=== PATIENT | female | born 1960 | race Caucasian/White ===

== ENCOUNTER → 2020-06-16 15:51 | Outpatient (CLI) | payer OTHER, SELFPAY ==
--- NOTE | ~2020-06-16 | MM_ITS ---
EXAMINATION: MM screening [facility] BI [facility] HISTORY: Screening mammogram TECHNIQUE: Craniocaudal and mediolateral oblique 3-D tomosynthesis images were obtained and synthetic 2-D images were generated. CAD analysis was submitted and interpreted. COMPARISON: 03/02/2019, 01/23/2018, 11/29/2016 bilateral digital screening mammogram examinations BREAST PARENCHYMAL COMPOSITION: The breasts are almost entirely fatty. FINDINGS: There is no evidence of suspicious mass, calcification, or architectural distortion to sugg est malignancy in either breast. There has been no suspicious interval change. IMPRESSION: 1. No mammographic evidence of malignancy. 2. Recommend routine screening mammography in one year. BI-RADS Category 1: Negative Reviewed, dictated and finalized at location A. [employer]
== END ==
PROVIDERS: Visit Provider Physician Assistant
DX: Z12.31 Encounter for screening mammogram for malignant neoplasm of breast (principal)
CPT/HCPCS: 77063; 77067

== ENCOUNTER → 2020-10-09 08:51 | Outpatient (CLI) | payer OTHER, SELFPAY ==
--- NOTE | ~2020-10-09 | MR_ITS ---
EXAMINATION: MR brain IAC wo/w con DATE: 10/09/2020 10:06 INDICATION: Dizziness and giddiness. Diplopia. TECHNIQUE: Magnetic resonance imaging (MRI) of the brain, brainstem, and internal auditory canals was performed without and with 19 mL MultiHance intravenous contrast. Sequences included sagittal and ax ial T1-weighted FSE, axial diffusion-weighted FS EPI, axial T2*-weighted GRE, axial T2-weighted FLAIR Propeller, axial T2-weighted Propeller, small bdzqb-fy-efyx coronal FIESTA, small qtcvc-yd-xbqy ksenia nal T1-weighted FSE, and small vlamh-nv-tpdf axial T1-weighted SPGR. Postcontrast sequences included axial T1-weighted FSE, small ojhls-wg-zgum coronal T1-weighted FSE, and small kykgq-lo-akht axial T1- weighted SPGR. Apparent diffusion coefficient (ADC) maps were created. COMPARISON: None. FINDINGS: There are scattered areas of nonspecific increased T2-weighted signal intensity in the cere bral white matter, which is within normal limits for the patient's age. There is no intracranial hemo rrhage, acute infarction, or abnormal intracranial mass lesion. The ventricles are normal in size. Th e orbits are normal. There is mild mucosal thickening in the sphenoid sinuses. The internal auditory canals and inner and middle ears are normal. The mastoid air cells are normal. IMPRESSION: 1. Normal aging brain. Reviewed, dictated and finalized at location A. IMPRESSION: 1. Normal aging brain.
[2020-10-09 09:23] LABS: Estimated Glomerular Filt Rate > 60
== END ==
PROVIDERS: PCP Family Medicine; Visit Provider Physician Assistant
DX: H53.2 Diplopia (principal); R42 Dizziness and giddiness
CPT/HCPCS: 70553; A9577

== ENCOUNTER 2021-07-15 20:04 | Emergency (ER) | payer OTHER, SELFPAY ==
--- NOTE | ~2021-07-15 | CT_ITS ---
EXAMINATION: CT abdomen pelvis w con DATE: 07/15/2021 22:51 INDICATION: Generalized abdominal pain TECHNIQUE: Computed tomography (CT) of the abdomen and pelvis was performed with 100 mL Omnipaque-350 intravenous contrast. Automated exposure control and iterative reconstruction technique were employe d. The dose-length product was 1399.17 mGy-cm. COMPARISON: None FINDINGS: Lung bases are clear. Heart size is normal. Atherosclerotic coronary artery calcific location. No per icardial or pleural effusion. Cholecystectomy clips at the gallbladder fossa. Liver, spleen, pancreas , bilateral adrenal glands and kidneys are normal. Postoperative changes at the proximal stomach like ly bariatric surgery. The proximal portion of the stomach which is mildly dilated and fluid-filled wi th the more distal stomach relatively decompressed with small amount of gas and fluid. Normal appendi x. No abnormal bowel wall thickening or obstruction. Bladder is normal. The uterus is not identified and has likely been surgically resected. No free intraperitoneal gas or fluid. No pathologically enla rged abdominal or pelvic lymphadenopathy. Moderate to severe thoracolumbar spondylosis. IMPRESSION: 1. No acute intra-abdominal/pelvic process. 2. Likely bariatric surgery at the stomach with fluid distention of the smaller proximal portion of t he stomach. Reviewed, dictated and finalized at location A. IMPRESSION: 1. No acute intra-abdominal/pelvic process. 2. Likely bariatric surgery at the stomach with fluid distention of the smaller proximal portion of the stomach.
[2021-07-15 20:06] VITALS: BP 158/100; PULSE 118; RESP 18; TEMP 36.1; O2SAT 98
[2021-07-15] MEDS: SODIUM CHLORIDE 0.9% IV 1,000 ML 999 ML IV CONT ×2 (20:39→22:39)
[2021-07-15] MEDS: PANTOPRAZOLE SODIUM IV 40 MG VIAL IV PUSH (20:40)
[2021-07-15] MEDS: ONDANSETRON INJ 4 MG/2 ML VIAL IV PUSH (20:40)
[2021-07-15] MEDS: MORPHINE SULFATE (*CRX) 4 MG/ML INJ IV PUSH (20:40)
[2021-07-15 20:56] LABS: Basophils Absolute Auto 0.1 K/mm3 (0.0-0.1); Basophils Percent Auto 0.7 % (0.2-1.2); Eosinophils Absolute Auto 0.1 K/mm3 (0-0.3); Hematocrit 44.6 % (37.0-47.0); Hemoglobin 14.8 g/dL (12.0-15.0); Immature Granulocyte Absolute 0.02 K/mm3 (0.00-0.031); Immature Granulocyte Percent A 0.2 % (0-0.5); Mean Corpuscular HGB Conc 33.2 g/dl (32-36); Mean Corpuscular Hemoglobin 27.7 pg (26-34); Mean Corpuscular Volume 83.4 fl (80-100); Mean Platelet Volume 9.5 fl (7.4-10.4); Monocytes Absolute Auto 0.4 K/mm3 (0.1-0.6); Monocytes Percent Auto 5.4 % (2.6-8.5); Neutrophils Absolute Auto 5.8 K/mm3 (1.3-6.7); Neutrophils Percent Auto 70.7 % (45.5-73.1); Platelet Count Result 341 k/mm3 (150-375); Red Blood Count 5.35 M/mm3 (4.2-5.4); Red Cell Distribution Width 12.7 % (11.5-14.5); White Blood Count 8.2 K/mm3 (4.5-10.0)
--- NOTE | 2021-07-15 21:03 | ED.GENADULT ---
HPI - General Adult General Chief complaint: Nausea/Vomiting/Diarrhea Stated complaint: Vomiting, knot in my breast bone. Time Seen by Provider: 07/15/21 20:20 History of Present Illness HPI narrative: Patient 60-year-old female who presents the emergency department with chief complaint of nausea vomiting diarrhea. The patient reports for the last week she has been having epigastric discomfort has had multiple bouts of vomiting and has had loose stool. The patient states that the stool has been black-colored patient reports she is not on any blood thinners but does report that she has prior history of gastric stapling procedure many years ago. Patient reports been unable to keep fluids down has been unable to eat. Patient states that the discomfort is mostly in the epigastric region reports not improved by anything or is worsened by anything. The patient reports is also has history of hyperglycemia and is currently on Metformin. Related Data Home Medications Medication Instructions Recorded Confirmed aspirin 81 mg chewable tablet 81 mg PO DAILY 11/16/19 05/10/21 Allergies Allergy/AdvReac Type Severity Reaction Status Date / Time codeine Allergy Unknown Skin Verified 05/10/21 16:32 Reaction Review of Systems Review of Systems: A 10 system review of systems was completed on the patient and is negative except for what is stated in the HPI. Nursing and ancillary documentation was reviewed. [facility], [facility] Past Medical History Medical History (Updated 07/16/21 @ 01:38 by Henok Manzano MD) Hepatitis C antibody test negative (~06/23/17) History of mammogram (~11/26/12) History of Papanicolaou smear of cervix (~10/19/08) Surgical History Surgical History History of colonoscopy (~11/22/16) History of hysterectomy (~2003) Family History Family History Other Family history of gastrointestinal disorder Social History Social History Second hand tobacco smoke exposure: No Alcohol intake: never Exam Narrative: GENERAL: Well-appearing, well-nourished, and in no acute distress. HEAD: Normocephalic, atraumatic. EYES: PERRLA and EOMI. ENT: Nares clear, no rhinorrhea or epistaxis. Mucous membranes moist. NECK: Supple. CHEST: Clear to auscultation. No respiratory distress. HEART: Regular rate and rhythm. No murmur heard. Normal peripheral pulses. ABDOMEN: Soft, mild tenderness to palpation in the epigastric region, nondistended, normal active bowel sounds. EXTREMITIES: Normal range of motion. No edema. SKIN: Warm, dry, no rash. NEURO: No focal deficits. Alert and oriented x3. PSYCH: Normal mood and affect. Course Course Emergency Course: Pleuritic CT scan of the abdomen pelvis shows no acute findings. Patient is feeling much better at this time able to tolerate p.o. intake. Vital Signs Vital signs: Vital Signs Temperature 36.1 C L 07/15/21 20:06 Pulse Rate 118 H 07/15/21 20:06 Respiratory Rate 18 07/15/21 20:06 Blood Pressure 158/100 H 07/15/21 20:06 Pulse Oximetry 98 07/15/21 20:06 Temperature 36.1 C L 07/15/21 20:06 Pulse Rate 86 07/15/21 23:52 Respiratory Rate 18 07/15/21 23:52 Blood Pressure 172/93 H 07/15/21 23:52 Pulse Oximetry 99 07/15/21 23:52 Medical Decision Making MDM Narrative Medical decision making narrative: Patient shows no evidence of bowel obstruction or acute intra-abdominal pathology. Patient's laboratory studies showed evidence of a UTI but showed no evidence of significant dehydration. Patient's white blood cell count was within normal limits. Patient has a normal lactic acid. There is no anion gap and she has no evidence of pancreatitis. Vital Signs Vital Signs: Vital Signs Temperature 36.1 C L 07/15/21 20:06 Pulse Rate 118 H 07/15/21 20:06
[2021-07-15 21:04] LABS: Add Urine Microscopic? YES; Alanine Aminotransferase 18 U/L (4-35); Albumin Level 5.1 g/dL (3.5-5.1); Alkaline Phosphatase 102 U/L (38-126); Anion Gap 11 mmol/L (8-16); Appearance Urine Cloudy (Clear); Aspartate Amino Transferase 26 U/L (14-36); Bilirubin Urine Negative (Negative); Bilirubin,Total 0.7 mg/dL (0.2-1.3); Blood Urea Nitrogen 16 mg/dL (7-17); Carbon Dioxide 29 mmol/L (22-30); Chloride 102 mmol/L (98-107); Color Urine Amber (Yellow); Estimated CRCL calculation 89 ml/min; Estimated Glomerular Filt Rate > 60; Glucose 178 mg/dL (65-110); Glucose Urine UA 1+ mg/dL (Negative); Hyaline Casts Urine 15-19 /lpf; Ketones Urine 2+ mg/dL (Negative); Leukocyte Esterase Ur 1+ LEU/UL (Negative); Lipase 54 U/L (23-300); Mucus Urine Heavy /lpf; Nitrate Urine Negative (Negative); Potassium 3.7 mmol/L (3.4-5.0); Protein Urine 3+ mg/dL (Negative); Sodium 142 mmol/L (137-145); Specific Grav Ur 1.025 (1.001-1.035); Squamous Epithelial Cell Urine Many /hpf (Few)
[2021-07-15 21:16] LABS: Blood Urine Negative (Negative)
[2021-07-15 21:37] LABS: Lactic Acid Reflex 0.8 mmol/L (0.7-2.1)
[2021-07-15 22:10] VITALS: BP 136/88; PULSE 100; RESP 17; O2SAT 98
--- NOTE | 2021-07-15 23:10 | PC.NURSE ---
Assuming care of pt.
[2021-07-15 23:52] VITALS: BP 172/93; PULSE 86; RESP 18; O2SAT 99
[2021-07-16] MEDS: PROCHLORPERAZINE EDISYLATE 10 MG/2 ML VIAL IV PUSH (00:06)
[2021-07-16] MEDS: SODIUM CHLORIDE 0.9% IV 1,000 ML 999 ML IV CONT (00:06)
[2021-07-16] MEDS: DICYCLOMINE HCL INJ 20 MG/2 ML VIAL IM (00:08)
[2021-07-16] MEDS: CEPHALEXIN 500 MG CAPSULE PO (01:38)
[2021-07-16 01:39] VITALS: BP 162/99; PULSE 98; RESP 18; O2SAT 96
== END 2021-07-16 01:45 | disposition home or self-care (01) ==
PROVIDERS: Emergency Provider Emergency Medicine; PCP Family Medicine
DX: K52.9 Noninfective gastroenteritis and colitis, unspecified (principal); N30.00 Acute cystitis without hematuria; Z79.82 Long term (current) use of aspirin; Z79.84 Long term (current) use of oral hypoglycemic drugs; Z79.899 Other long term (current) drug therapy; Z98.84 Bariatric surgery status
CPT/HCPCS: 36415; 74177; 80053; 81001; 83605; 83690; 85025; 87077; 87086; 87088; 96361; 96372; 96374; 96375; 99284; A9270; C9113; J0500; J0780; J2270; J2405; J7030; Q9967

== ENCOUNTER → 2021-08-22 07:32 | Outpatient (CLI) | payer OTHER, SELFPAY ==
--- NOTE | ~2021-08-22 | MM_ITS ---
EXAMINATION: MM diagnostic elizabeth BI [facility] HISTORY: Palpable right breast mass TECHNIQUE: ML, MLO and CC 3-D tomosynthesis images of both breasts were performed and synthetic 2-D i mages were generated. CAD analysis was submitted and interpreted. COMPARISON: June 16, 2020, March 02, 2019, January 23, 2018lateral screening mammogram examinat ions BREAST PARENCHYMAL COMPOSITION: The breasts are almost entirely fatty. FINDINGS: Corresponding to the skin marker at the area of clinical complaint of a palpable lump in th e upper mid right breast is an approximately 8 mm benign circumscribed oil cysts with minimal wall ca lcification. Occasional benign calcified microhematomas. No suspicious mass or architectural distortion, malignant calcification, skin thickening or retractio n or significant new or developing density is detected. IMPRESSION: 1. Benign right breast will cyst corresponding to area of clinical complaint No mammographic evidence of malignancy 2. Routine mammographic screening is recommended BI-RADS Category 2: Benign finding(s). Reviewed, dictated and finalized at location A.
== END ==
PROVIDERS: PCP Family Medicine; Visit Provider Family Medicine
DX: N60.01 Solitary cyst of right breast (principal)
CPT/HCPCS: 77062; 77066; G0279

== ENCOUNTER → 2022-11-06 15:17 | Outpatient (CLI) | payer OTHER, SELFPAY ==
--- NOTE | ~2022-11-06 | MM_ITS ---
EXAMINATION: MM screening [facility] BI [facility]s HISTORY: Screening TECHNIQUE: Craniocaudal and mediolateral oblique 3-D tomosynthesis images were obtained and synthetic 2-D images were generated. CAD analysis was submitted and interpreted. COMPARISON: Comparison to multiple prior studies sequentially, with oldest reviewed study dated 09/2015. BREAST PARENCHYMAL COMPOSITION: There are scattered areas of fibroglandular density. FINDINGS: There is no evidence of suspicious mass, calcification, or architectural distortion to sugg est malignancy in either breast. There has been no suspicious interval change. IMPRESSION: 1. No mammographic evidence of malignancy. 2. Recommend routine screening mammography in one year. BI-RADS Category 1: Negative Reviewed, dictated and finalized at location A.
== END ==
PROVIDERS: PCP Family Medicine; Visit Provider Family Medicine
DX: Z12.31 Encounter for screening mammogram for malignant neoplasm of breast (principal)
CPT/HCPCS: 77063; 77067

== ENCOUNTER → 2022-11-28 12:09 | Outpatient (CLI) | payer OTHER, SELFPAY ==
--- NOTE | ~2022-11-28 | DEXA_ITS ---
Bone Density Report Name: ROXANA FRYE Age: 62 Sex: Female Ethnicity: White Date of : 1960 Indication: postmenopausal; screening for osteoporosis; height loss; hysterectomy; Referring Provider: Bianca Mendieta Study: Bone densitometry was performed. Exam Date: November 28, 2022 Accession number: [id number] Bone Density: Region BMD T-score Z-score Classification AP Spine (L1, L2, L3) 1.153 1.2 2.7 Normal Femoral Neck (Left) 0.998 1.3 2.7 Normal Total Hip (Left) 1.089 1.2 2.2 Normal Femoral Neck (Right) 0.997 1.3 2.7 Normal Total Hip (Right) 1.096 1.3 2.3 Normal Total Hip Mean 1.093 1.3 2.3 Normal World Health Organization criteria for BMD impression classify patients as: Normal (T-score at or above -1.0), Osteopenia (T-score between -1.0 and -2.5), or Osteoporosis (T-score at or below -2.5). 10-year Fracture Risk: FRAX not reported because: All T-scores for Spine Total, Hip Total, Femoral Neck at or above -1.0 Previous Exams: Region Exam Age BMD T-score BMD Change BMD Change Date g/cm2 vs Baseline vs Previous AP Spine(L1, L2, L3) 11/28/2022 62 1.153 1.2 -0.121* -0.121* 11/14/2014 54 1.274 2.3 Total Hip(Left) 11/28/2022 62 1.089 1.2 -0.222* -0.222* 11/14/2014 54 1.311 3.0 Total Hip(Right) 11/28/2022 62 1.096 1.3 -0.199* -0.199* 11/14/2014 54 1.295 2.9 *Denotes significance at 95% confidence level, LSC for AP Spine = 0.022 g/cm2, LSC for Total Hip = 0.027 g/cm2 Clinical Information Provided by Patient: Has used the following medications: Vitamin D, MULTI-VITAMIN Has the following medical conditions: Hysterectomy Patient maximum height was 67.5 Menopause Age: 44 Drinks caffeinated beverages Onset of menses at age 11 Number of children 1 Impression: The patient has normal bone mass. The BMD for the AP Spine(L1, L2, L3) decreased, changing by -0.121 since the last DXA exam. The BMD for the Total Hip(Left) decreased, changing by -0.222 since the last DXA exam. The BMD for the Total Hip(Right) decreased, changing by -0.199 since the last DXA exam. Discussion: LOW RISK OF FRACTURE; BONE DENSITY IS WELL ABOVE THE MINIMUM DESIRABLE LEVEL AND ABOVE AVERAGE FOR AGE AND SEX AT ALL SKELETAL SITES TESTED. This person's bone density is above expected limits for age and sex. This is rarely clinically significant, but should be pursued if there are significant musculoskeletal com
== END ==
PROVIDERS: PCP Orthopaedic Surgery; Visit Provider Nurse Practitioner
DX: Z78.0 Asymptomatic menopausal state (principal)
CPT/HCPCS: 77080

== ENCOUNTER 2023-07-17 05:52 | Day surgery (SDC) | payer OTHER, SELFPAY ==
[2023-07-01 11:51] VITALS: BMI 32.1
[2023-07-17] VITALS (7 sets, daily range): BP systolic 122–141; BP diastolic 60–93; PULSE 71–84; RESP 12–23; TEMP 35.8–36.4; O2SAT 93–100
--- NOTE | 2023-07-17 07:05 | PM.HPGS ---
History of Present Illness History of Present Illness Chief complaint: Localized Adiposity Narrative: Patient seen and examined in pre-operative holding area. No interval change in medical history or symptoms. Patient remembers previous discussion of benefits and alternatives to procedure. Continues to desire to proceed with excision of back mass . I reviewed the risks including but not limited to bleeding ,infection, asymmetry, undesireable cosmetic appearance, seroma, recurrence, no change or worsening of symptoms, change in sensation. I discussed the possible use of assistants and their level of participation in the case. Patient stated understanding and signed the consent form wishing to proceed Review of Systems Review of Systems: All systems reviewed & are unremarkable except as noted in HPI and below PMFSH Past Medical History Medical History (Updated 07/17/23 @ 07:16 by Glen Markham MD) Anxiety Essential (primary) hypertension Hepatitis C antibody test negative (~06/23/17) History of mammogram (~11/26/12) History of Papanicolaou smear of cervix (~10/19/08) Type 2 diabetes mellitus without complications Surgical History Surgical History History of colonoscopy (~11/22/16) History of hysterectomy (~2003) Family History Family History Other Family history of gastrointestinal disorder Social History Social History (Updated 05/14/23 @ 16:10 by Marie Franks MA) Smoking status: Never smoker Second hand tobacco smoke exposure: No Alcohol intake: never Substance use: never Substance use type: does not use Do You Feel Safe in your Home?: Yes Lack of Transportation: No Lack of Food: Never True Current Housing: I Have Housing Concerned About Future Housing: No Difficulty Paying Gas/Electric Bills: No Difficulty Paying for Meds: No Currently Unemployed: No Education: Master's Degree or Higher Difficulty w/ Childcare or Family Care: No Living arrangements: alone Spiritual care concerns: No Meds Home Medications and Allergies Home Medications Medication Instructions Recorded Confirmed Type amlodipine 5 mg-valsartan 320 mg 1 tablet PO DAILY #90 tabs 01/24/23 07/17/23 Rx tablet clobetasol 0.05 % scalp solution 1 applic topical BID #150 mL 03/06/23 07/17/23 Rx dulaglutide 4.5 mg/0.5 mL 4.5 mg (0.5 mL) subcut WEEKLY #6 mL 03/06/23 07/17/23 Rx subcutaneous pen injector metformin 1,000 mg tablet 1,000 mg PO BID #180 tabs 03/10/23 07/17/23 Rx celecoxib 200 mg capsule See Rx Instructions .Route 03/31/23 07/17/23 Rx .COMPLEX #90 caps metoprolol succinate 50 mg 75 mg PO DAILY #135 tabs 04/08/23 07/17/23 Rx tablet,extended release 24 hr betamethasone dipropionate 0.05 % 1 applic topical BID #45 grams 05/13/23 07/17/23 Rx topical cream calcipotriene 0.005 % topical cream 1 applic topical BID #60 grams 05/13/23 07/17/23 Rx pravastatin 10 mg tablet See Rx Instructions .Route 06/03/23 07/17/23 Rx .COMPLEX #90 tabs levothyroxine 88 mcg tablet See Rx Instructions .Route 06/30/23 07/17/23 Rx .COMPLEX #90 tabs venlafaxine 150 mg See Rx Instructions .Route 06/30/23 07/17/23 Rx capsule,extended release 24 hr .COMPLEX #90 caps tramadol 50 mg tablet 50 mg PO Q6H PRN pain #8 tabs 07/17/23 Rx Allergies Allergy/AdvReac Type Severity Reaction Status Date / Time codeine Allergy Unknown Skin Verified 07/17/23 06:19 Reaction Vital Signs Vital Signs - 24 hr 07/17/23 06:27 Temperature 35.8 C L Pulse Rate 71 Respiratory Rate 18 Blood Pressure 136/93 H Pulse Oximetry 98 Oxygen Delivery Room Air Exam Narrative: unchanged Assessment and Plan Assessment and plan (1) Localized swelling, mass and lump, trunk: Code(s): R22.2 - Localized swelling, mass and lump, trunk Status: Acute Assessment and Plan:
--- NOTE | 2023-07-17 07:06 | P.OP_ITS ---
Procedure Note - Detailed Date of Procedure 07/17/23 Pre-op Diagnosis back mass Post-op Diagnosis Same Procedure Performed excisin back mass Surgeon Elba Mayen MD Forestry Worker Kaila Ponce PA-C Anesthesia MAC Description of Procedure INFORMED CONSENT: The patient was seen and examined and marked in the pre-op area.? The patient signed the consent form. PROCEDURE IN DETAIL:The patient taken back to OR on the stretcher in lateral decubitus position. Time out performed with anesthesia, surgeon and staff agreeing on patient's name site and surgery to be performed SCDs were placed on the lower extremities and inflated. After anesthesia administered sedation I injected {30}cc 1%lido with epi and 0.5% marcaine plain at the operative site The?area?was prepped and draped in sterile fashion I proceeded with making a vertical incision over mass through skin and dermis with a 15 blade scalpel. bovie cautery was used to dissect through subq tissue noting mass was sub fascial. inciison made in fascia with 15 blade scalpel then I proceeded with circumferential dissection around the lipomatous mass. I irrigated with normal saline and achieved hemostasis with bovie cautery. There was a notable excess of skin after mass resection. I proceeded with elliptical excision of excess skin around my incision including extra skin superiorly and inferiorly for dog ears with 15 blade and bovie. I mobilized some of the subcutaneous fat and brought it into the empty space to help improve contour and secured it with 2-0 vicryl suture after I closed fascia with 2-0 vicryl suture. 3-0 vicryl was used for dermis where I also made 3-point suture to tack skin down to the fascia and 3-0 nylon for skin. The diameter of the mass was [id number]. The length of closure was 12cm A dressing of mastisol, steri-strip, 4x4, and pressure dressing was applied.. The patient was then awaken from anesthesia and transferred to the recovery room in stable condition.? Complications - none EBL- 10cc Disposition - home in stable conditions Kaila Ponce PA-C was essential for positioning, retraction, closure and dressing placement AM Billing Surgery - Charge Forward: Surgery Billing ([id number] and [id number], for kaila)
--- NOTE | 2023-07-17 07:16 | WPDANESEPPF ---
Anes - Initial Pre Proc Eval Procedure: Operation Date: 07/17/23 07:30 Proposed Procedures p Excision Back Mass - Elba Mayen MD Date/Time: 07/17/23 07:16 Surgeon: Elba Mayen MD Pre Op Diagnosis: Localized Adiposity Patient Data Age: 62 Gender: F Height: 1.7 m Weight: 93.05 kg Last Vital Signs Temp 35.8 C L 07/17/23 06:27 Pulse 71 07/17/23 06:27 Resp 18 07/17/23 06:27 BP 136/93 H 07/17/23 06:27 Pulse Ox 98 07/17/23 06:27 O2 Del Method Room Air 07/17/23 06:27 Allergies Allergy/AdvReac Type Severity Reaction Status Date / Time codeine Allergy Unknown Skin Verified 07/17/23 06:19 Reaction Home Medications Medication Instructions Recorded Confirmed Type amlodipine 5 mg-valsartan 320 mg 1 tablet PO DAILY #90 tabs 01/24/23 07/17/23 Rx tablet clobetasol 0.05 % scalp solution 1 applic topical BID #150 mL 03/06/23 07/17/23 Rx dulaglutide 4.5 mg/0.5 mL 4.5 mg (0.5 mL) subcut WEEKLY #6 mL 03/06/23 07/17/23 Rx subcutaneous pen injector metformin 1,000 mg tablet 1,000 mg PO BID #180 tabs 03/10/23 07/17/23 Rx celecoxib 200 mg capsule See Rx Instructions .Route 03/31/23 07/17/23 Rx .COMPLEX #90 caps metoprolol succinate 50 mg 75 mg PO DAILY #135 tabs 04/08/23 07/17/23 Rx tablet,extended release 24 hr betamethasone dipropionate 0.05 % 1 applic topical BID #45 grams 05/13/23 07/17/23 Rx topical cream calcipotriene 0.005 % topical cream 1 applic topical BID #60 grams 05/13/23 07/17/23 Rx pravastatin 10 mg tablet See Rx Instructions .Route 06/03/23 07/17/23 Rx .COMPLEX #90 tabs levothyroxine 88 mcg tablet See Rx Instructions .Route 06/30/23 07/17/23 Rx .COMPLEX #90 tabs venlafaxine 150 mg See Rx Instructions .Route 06/30/23 07/17/23 Rx capsule,extended release 24 hr .COMPLEX #90 caps Patient hx anesthesia problems: none Family hx anesthesia problems: none Results Review: All pre-operative results and documents have been reviewed as part of the pre-operative evaluation. [facility] Past Medical History Medical History (Updated 07/17/23 @ 07:16 by Glen Markham MD) Anxiety Essential (primary) hypertension Hepatitis C antibody test negative (~06/23/17) History of mammogram (~11/26/12) History of Papanicolaou smear of cervix (~10/19/08) Type 2 diabetes mellitus without complications Surgical History Surgical History History of colonoscopy (~11/22/16) History of hysterectomy (~2003) Family History Family History Other Family history of gastrointestinal disorder Social History Social History (Updated 05/14/23 @ 16:10 by Marie Franks MA) Smoking status: Never smoker Second hand tobacco smoke exposure: No Alcohol intake: never Substance use: never Substance use type: does not use Do You Feel Safe in your Home?: Yes Lack of Transportation: No Lack of Food: Never True Current Housing: I Have Housing Concerned About Future Housing: No Difficulty Paying Gas/Electric Bills: No Difficulty Paying for Meds: No Currently Unemployed: No Education: Master's Degree or Higher Difficulty w/ Childcare or Family Care: No Living arrangements: alone Spiritual care concerns: No Anes - Eval Final PreProcedure Day of Procedure 07/17/23 07:16 Patient weight: obese Heart: regular rate and rhythm Lungs: clear to auscultation Airway: Mallampati scale class II Neurological: alert and oriented Last oral intake: >/= 8 hours ASA classification: III Emergent: no Anesthetic plan: proceed Anesthesia type and monitoring: general LMA and standard monitoring Results Review: All pre-operative results and documents have been reviewed as part of the pre-operative evaluation. Informed Consent: The patient's anesthetic plan and its attendant risks and benefits were discussed with the patient/family/
[2023-07-17] MEDS: LACTATED RINGERS 1,000 ML 30 ML IV CONT ×2 (07:19→08:35)
[2023-07-17 07:23] LABS: Glucose Point of Care 152 mg/dl (65-105)
[2023-07-17] MEDS: ceFAZolin SODIUM 2 GM/20 ML SW SYRINGE IV PUSH (07:31)
[2023-07-17] MEDS: LIDO 1%/EPINEPHRINE 1:100,000 20 ML VIAL 15 ML INFILTRATE (07:42)
[2023-07-17] MEDS: ACETAMINOPHEN 500 MG TABLET 1000 MG PO (09:23)
--- NOTE | 2023-07-17 09:34 | WPDANESPN ---
Anes - Prog Note Post-Op Date/Time: 07/17/23 09:34 Cardiovascular status: normal Respiratory status: normal Airway patency: baseline Mental status: baseline Post-Op hydration status: normal Vital Signs: Last Vital Signs Temp 36.4 C 07/17/23 08:29 Pulse 81 07/17/23 09:18 Resp 18 07/17/23 09:18 BP 134/69 07/17/23 09:18 Pulse Ox 94 07/17/23 09:18 O2 Del Method Room Air 07/17/23 09:18 O2 Flow Rate 8 07/17/23 08:29 Pain Score (VAS): 2/10 I/O: Intake & Output 07/16/23 07/17/23 07/17/23 23:59 07:59 15:59 Intake Total 100 Balance 100 07/17/23 06:39 POC Capillary Glucose 152 H Patient Feedback: Patient satisfied with anesthetic care.
== END 2023-07-17 09:35 | disposition home or self-care (01) ==
PROVIDERS: PCP Family Medicine; Visit Provider Plastic Surgery
PROC: (CPT 21933; principal; 2023-07-17 07:30)
DX: R22.2 Localized swelling, mass and lump, trunk (principal)
CPT/HCPCS: 21933

== ENCOUNTER 2023-07-17 07:00 | Outpatient (NON) | payer OTHER, SELFPAY | END 2023-07-17 07:01 | disposition home or self-care (01) | PROVIDERS: PCP Family Medicine; Visit Provider Plastic Surgery | DX: D17.9 Benign lipomatous neoplasm, unspecified (principal) | CPT/HCPCS: 88304 ==

== ENCOUNTER 2023-11-07 07:15 | Outpatient (CLI) | payer OTHER, SELFPAY ==
--- NOTE | ~2023-11-07 | MM_ITS ---
EXAMINATION: MM screening [facility] BI [facility] HISTORY: Screening TECHNIQUE: Craniocaudal and mediolateral oblique 3-D tomosynthesis images were obtained and synthetic 2-D images were generated. CAD analysis was submitted and interpreted. COMPARISON: Comparison to multiple prior studies sequentially, with oldest reviewed study dated 11/29. BREAST PARENCHYMAL COMPOSITION: Not Dense: Breast are almost entirely fatty. FINDINGS: There is no evidence of suspicious mass, calcification, or architectural distortion to sugg est malignancy in either breast. There has been no suspicious interval change. IMPRESSION: 1. No mammographic evidence of malignancy. 2. Recommend routine screening mammography in one year. BI-RADS Category 1: Negative Reviewed, dictated and finalized at location B.
== END 2023-11-07 07:16 ==
PROVIDERS: PCP Family Medicine; Visit Provider Family Medicine
DX: Z12.31 Encounter for screening mammogram for malignant neoplasm of breast (principal)
CPT/HCPCS: 77063; 77067

== ENCOUNTER 2024-11-09 07:16 | Outpatient (CLI) | payer OTHER, SELFPAY ==
--- NOTE | ~2024-11-09 | MM_ITS ---
EXAMINATION: MM screening el[facility] HISTORY: Screening TECHNIQUE: Craniocaudal and mediolateral oblique 3-D tomosynthesis images were obtained and synthetic 2-D images were generated. CAD analysis was submitted and interpreted. COMPARISON: Comparison to multiple prior studies sequentially, with oldest reviewed study dated 01/23. BREAST PARENCHYMAL COMPOSITION: The breasts are almost entirely fatty. FINDINGS: There is no evidence of suspicious mass, calcification, or architectural distortion to sug gest malignancy in either breast. Scattered benign-appearing calcifications are present. IMPRESSION: 1. No mammographic evidence of malignancy. 2. Recommend routine screening mammography in one year. BI-RADS Category 2: Benign finding(s). Reviewed, dictated and finalized at location B.
== END 2024-11-09 07:17 | disposition home or self-care (01) ==
LOC: MICIMG 07:17
PROVIDERS: PCP Nurse Practitioner; Visit Provider Nurse Practitioner
DX: Z12.31 Encounter for screening mammogram for malignant neoplasm of breast (principal)
CPT/HCPCS: 77063; 77067

== ENCOUNTER 2024-12-04 14:33 | Emergency (ER) | payer OTHER, SELFPAY ==
--- NOTE | 2024-12-04 14:38 | ED.GENADULT ---
HPI - General Adult General Chief complaint: Abdominal Pain Stated complaint: Abdominal Pain Time Seen by Provider: 12/04/24 14:38 Source: patient Mode of arrival: ambulatory Limitations: no limitations History of Present Illness HPI narrative: 64-year-old female patient presents to the [facility] with complaints of 4-5 days of epigastric pain.? Patient states she has tried to take some [id number] famotidine once or twice but really has not helped with the pain.? Patient states she has tried taking Tums a couple of times for the pain as well.? Patient states she had this years ago but stopped eating before bed, she lost weight and states that she has had the symptoms for quite some time. Patient states on the day that she started having symptoms she did eat a sandwich with bread, turkey, cheese and lettuce. Patient states her last bowel movement was today and normal. Patient does admit she does not eat much fiber. Patient denies fevers body aches or chills. Denies any abdominal pain nausea vomiting or diarrhea at this time. Patient states she does take probiotics daily Related Data Home Medications ?Medication ?Instructions ?Recorded ?Confirmed ?Last Taken ?Type risankizumab-rzaa 150 mg/mL 150 mg subcut [id number] 08/10/24 11/22/24 Unknown History subcutaneous pen injector (Skyrizi) clobetasol 0.05 % scalp solution See Rx Instructions .Route 11/22/24 11/22/24 Unknown History .COMPLEX PRN empagliflozin 25 mg tablet 25 mg PO DAILY 11/22/24 11/22/24 Unknown History (Jardiance) Allergies Allergy/AdvReac Type Severity Reaction Status Date / Time codeine Allergy Unknown Skin Verified 12/04/24 14:36 Reaction Review of Systems Review of Systems: CONSTITUTIONAL: Denies fever, chills, or sweats. EYES: Denies visual changes, redness, or discharge. ENT: Denies rhinorrhea, congestion, sore throat, or otalgia. CARDIOVASCULAR: Denies chest pain, palpitations, or edema. RESPIRATORY: Denies cough or dyspnea. GASTROINTESTINAL: Denies abdominal pain, nausea, vomiting, or diarrhea. Positive epigastric pain times 4-5 days GENITOURINARY: Denies dysuria or hematuria. SKIN: Denies rash or itching. MUSCULOSKELETAL: Denies back pain, joint pain, or myalgia. NEUROLOGIC: Denies headache, numbness, or weakness. PSYCHIATRIC: Denies anxiety or depression. [facility] Past Medical History Medical History History of lipoma surgically removed 07/17/23 Anxiety Essential (primary) hypertension Type 2 diabetes mellitus without complications History of Papanicolaou smear of cervix (~10/19/08) History of mammogram (~11/26/12) Hepatitis C antibody test negative (~06/23/17) Surgical History Surgical History History of hysterectomy (~2003) History of colonoscopy (~11/22/16) Family History Family History Other Family history of gastrointestinal disorder Social History Social History Smoking status: Never smoker Second hand tobacco smoke exposure: No Alcohol intake: never Substance use: never Substance use type: does not use Do You Feel Safe in your Home?: Yes Lack of Transportation: No Lack of Food: Never True Current Housing: I Have Housing Concerned About Future Housing: No Difficulty Paying Gas/Electric Bills: No Difficulty Paying for Meds: No Currently Unemployed: No Education: Master's Degree or Higher Difficulty w/ Childcare or Family Care: No Living arrangements: alone Spiritual care concerns: No Comments At the time of my signature I agree with nursing past medical history, surgical, social, and family history. There is no relevant family history pertinent to the presenting complaint. Exam Narrative: GENERAL: Well-appearing, well-nourished, and in no acute distress. HEAD: Normocephalic, atraumatic. EYES: PERRLA and EOMI. ENT: Nares clear, no rhinorrhea or epistaxis. Mucous membranes moist. NECK: Supple. No lymphadenopathy CHEST: Clear to auscultation. No respiratory distress. HEART: Regular rate and rhythm. No murmur heard. Normal peripheral pulses. ABDOMEN: Soft, nontender, nondistended, normal active bowel sounds. EXTREMITIES: Normal range of motion. No edema. SKIN: Warm, dry, no rash. NEURO: No focal deficits. Alert and oriented x3. Course Course Level of Care: Express Care Visit Reevaluation(s) Reevaluation #1: Re-evaluated patient after receiving a GI cocktail. Patient states that she is starting to feel some relief and is feeling much better since receiving the GI cocktail. Discussed with patient that her EKG does not show any thing acutely concerning at this time however I do recommend that she follow-up with her primary doctor for further evaluation of her EKG as well as rigors symptoms. We will go ahead and start her on some famotidine and omeprazole today to help with the symptoms and again recommend that she call her doctor on Friday for further evaluation. Patient verbalized understanding denies any other questions or concerns at this time. Date: 12/04/24 Time: 15:54 Vital Signs Vital signs: Vital Signs Temperature 36.9 C 12/04/24 14:40 Pulse Rate 84 12/04/24 14:40 Respiratory Rate 18 12/04/24 14:40 Blood Pressure 137/93 H 12/04/24 14:40 Pulse Oximetry 100 12/04/24 14:40 Oxygen Delivery Room Air 12/04/24 14:40 Temperature 36.9 C 12/04/24 14:40 Pulse Rate 84 12/04/24 14:40 Respiratory Rate 18 12/04/24 14:40 Blood Pressure 137/93 H 12/04/24 14:40 Pulse Oximetry 100 12/04/24 14:40 Oxygen Delivery Room Air 12/04/24 14:40 Vital signs reviewed. Medical Decision Making MDM Narrative Medical decision making narrative: Plan care for patient is to check an EKG to ensure that this is not anything caused by her heart. We will also provide patient a GI cocktail in the clinic today to see if this helps relieve some of the symptoms. If it does and the EKG is negative we will discharge home with omeprazole and famotidine and have her follow-up with her primary doctor. Differential Diagnosis Differential Diagnosis: Differential diagnosis: Appendicitis, ovarian torsion, gallbladder disease, ovarian torsion, pancreatitis, lower lobe pneumonia,AAA, AMI or ACS, DKA, diverticulitis. Vital Signs Vital Signs: Vital Signs Temperature 36.9 C 12/04/24 14:40 Pulse Rate 84 12/04/24 14:40 Respiratory Rate 18 12/04/24 14:40 Blood Pressure 137/93 H 12/04/24 14:40 Pulse Oximetry 100 12/04/24 14:40 Oxygen Delivery Room Air 12/04/24 14:40 Temperature 36.9 C 12/04/24 14:40 Pulse Rate 84 12/04/24 14:40 Respiratory Rate 18 12/04/24 14:40 Blood Pressure 137/93 H 12/04/24 14:40 Pulse Oximetry 100 12/04/24 14:40 Oxygen Delivery Room Air 12/04/24 14:40 ECG Data EKG #1: Interpretation: Sinus rhythm with sinus arrhythmia. Low QRS voltage, QRS deflection less than 0.5/1.0 in the and limb/chest leads. Anteroseptal myocardial infarction, probably old. Abnormal ECG. Unconfirmed report. Vent rate: 73 [place] interval: 161 QRS duration: 81 QT/QTC: 384/410 P-R-T axes: 30, 39, 32 Average RR: 816 QTC B: 425 QTCf: 410 Critical Care Time Critical Care Time Critical Care Time: No Discharge Plan Discharge Clinical Impression: Chest pain due to GERD Patient Disposition: Home Condition: Stable Instructions: Antibiotic Form, GERD (Gastroesophageal Reflux Disease) (ED) Additional Instructions: Gastroesophageal reflux disease (GERD) is a backflow of acid from the stomach into the swallowing tube (esophagus). Home care These home care steps can help you manage GERD: Maintain a healthy weight. Get help to lose any extra pounds. Avoid lying down after meals. Avoid eating late at night. Elevate the head of your bed by 6 inches. You can do this by placing wooden blocks or bed risers under the head of your bed. Avoid wearing tight-fitting clothes. Avoid foods that might irritate your stomach, such as the following: Alcohol Fat Chocolate Caffeine Spearmint or peppermint Begin an exercise program. You can benefit from simple activities, such as walking or gardening. Break the smoking habit. Enroll in a stop-smoking program to improve your chances of success. Limit alcohol intake to no more than 2 drinks a day. Take your medicines exactly as directed. Don?t skip doses. Avoid kloz-fbu-vjxjvmi nonsteroidal anti-inflammatory medicines, such as aspirin and ibuprofen, unless recommended by your healthcare provider for certain conditions. If possible, avoid nitrates (heart medicines, such as nitroglycerin and isosorbide dinitrate ). Follow-up with your primary doctor in the next 5-7 days as needed. When to call the healthcare provider Call your healthcare provider immediately if you have any of the following: Trouble swallowing Pain when swallowing Feeling of food caught in your chest or throat Pain in the neck, chest, or back Heartburn that causes you to vomit Vomiting blood Black or tarry stools (from digested blood) More saliva (watering of the mouth) than usual Weight loss of more than 3% to 5% of your total body weight in a month Hoarseness or sore throat that won?t go away Choking, coughing, or wheezing Copy of her EKG was provided T today. Please follow-up with your primary doctor for follow-up on your EKG. If her symptoms worsen over the weekend including increased chest pain, shortness of breath, lightheadedness, dizziness, sweating nausea or vomiting then please go to the ER for further evaluation right away Patient Language: Kyrgyz Prescriptions: New omeprazole 20 mg capsule,delayed release(DR/EC) 20 mg PO DAILY 30 Days Qty: 30 0RF famotidine 20 mg tablet 20 mg PO BID 30 Days Qty: 60 0RF No Action clobetasol 0.05 % solution See Rx Instructions .ROUTE .COMPLEX PRN Dose Instruction: APPLY 1 APPLICATION TOPICALLY TWICE A DAY Rx Instructions: APPLY 1 APPLICATION TOPICALLY TWICE A DAY PRN; Jardiance 25 mg tablet 25 mg PO DAILY Skyrizi 150 mg/mL pen injector 150 mg subcut [id number] venlafaxine 150 mg capsule,extended release 24hr See Rx Instructions .ROUTE .COMPLEX Qty: 90 1RF Dose Instruction: TAKE 1 CAPSULE EVERY MORNING Rx Instructions: TAKE 1 CAPSULE EVERY MORNING amlodipine-valsartan 5-320 mg tablet See Rx Instructions .ROUTE .COMPLEX Qty: 90 1RF Dose Instruction: TAKE 1 TABLET DAILY Rx Instructions: TAKE 1 TABLET DAILY Ozempic 2 mg/dose (8 mg/3 mL) pen injector 2 mg subcut WEEKLY Qty: 9 5RF levothyroxine 88 mcg tablet See Rx Instructions .ROUTE .COMPLEX Qty: 90 1RF Dose Instruction: Take 1 tablet by mouth once daily Rx Instructions: Take 1 tablet by mouth once daily metformin 1,000 mg tablet See Rx Instructions .ROUTE .COMPLEX Qty: 90 1RF Dose Instruction: Take 1 tablet by mouth twice daily Rx Instructions: Take 1 tablet by mouth daily celecoxib 200 mg capsule See Rx Instructions .ROUTE .COMPLEX Qty: 90 1RF Dose Instruction: TAKE 1 CAPSULE DAILY Rx Instructions: TAKE 1 CAPSULE DAILY metoprolol succinate 50 mg tablet extended release 24 hr 75 mg PO DAILY Qty: 135 1RF pravastatin 10 mg tablet See Rx Instructions .ROUTE .COMPLEX Qty: 90 1RF Dose Instruction: TAKE 1 TABLET DAILY AT BEDTIME Rx Instructions: TAKE 1 TABLET DAILY AT BEDTIME Follow-up/Referrals: Bianca Mendieta [employer] IN[employer]STIGATOR[facility] [Primary Care Provider] - Time of Disposition: 15:52
[2024-12-04 14:40] VITALS: BP 137/93; PULSE 84; RESP 18; TEMP 36.9; O2SAT 100
--- NOTE | 2024-12-04 15:05 | ECG_ITS ---
Test Date: 2024-12-04 15:18:51 Measurements Intervals [place] Rate: 71 P: 29 GA: 166 QRS: 35 QRSD: 81 T: 34 QT: 380 QTc: 414 Interpretive Statements SINUS RHYTHM LOW QRS VOLTAGE- DIFFUSE LEADS ANTEROSEPTAL INFARCT, AGE INDETERMINATE BORDERLINE ST ABNORMALITY- HIGH LATERAL LEADS ABNORMAL ECG No previous ECG available for comparison Electronically Signed On 12-04-2024 15:45:59 CDT by Francisco Arzia D.O.
[2024-12-04] MEDS: LIDOCAINE 2% VISC SOLN 15 ML UDC 10 ML PO (15:15)
[2024-12-04] MEDS: MAG HYDROX/AL HYDROX/SIMETH 30 ML UDC PO (15:15)
== END 2024-12-04 16:00 | disposition home or self-care (01) ==
PROVIDERS: Emergency Provider Nurse Practitioner Family; PCP Nurse Practitioner
DX: K21.9 Gastro-esophageal reflux disease without esophagitis (principal); I10 Essential (primary) hypertension; E11.9 Type 2 diabetes mellitus without complications; Z79.84 Long term (current) use of oral hypoglycemic drugs; Z79.85 Long-term (current) use of injectable non-insulin antidiabetic drugs
CPT/HCPCS: 93005; 99213; A9270; G0463

== ENCOUNTER 2024-12-18 08:51 | Emergency (ER) | payer OTHER, SELFPAY ==
[2024-12-18 09:01] VITALS: BP 147/90; PULSE 76; RESP 18; TEMP 35.9; O2SAT 96
--- NOTE | 2024-12-18 09:10 | ED.UPPEXIN ---
HPI - Extremity Injury (Upper) General Chief Complaint: Extremity Injury, Upper Stated Complaint: pain in arm Time Seen by Provider: 12/18/24 09:05 Source: patient Mode of arrival: ambulatory Limitations: no limitations History of Present Illness HPI narrative: Mary is a 64-year-old female patient presenting to the clinic today with complaints of right forearm pain and swelling x2 days. She has not taken anything for her symptoms. Denies any known injury to her right forearm. Has mild swelling when compared to the left forearm. Denies any chest pain or shortness of breath. Denies any insect bite/sting. Rates pain 4/10 currently. No fever, chills, body aches. Related Data Home Medications ?Medication ?Instructions ?Recorded ?Confirmed ?Last Taken ?Type risankizumab-rzaa 150 mg/mL 150 mg subcut [id number] 08/10/24 11/22/24 Unknown History subcutaneous pen injector (Skyrizi) clobetasol 0.05 % scalp solution See Rx Instructions .Route 11/22/24 12/18/24 Unknown History .COMPLEX PRN as needed empagliflozin 25 mg tablet 25 mg PO DAILY 11/22/24 11/22/24 Unknown History (Jardiance) Allergies Allergy/AdvReac Type Severity Reaction Status Date / Time codeine Allergy Unknown Skin Verified 12/18/24 09:05 Reaction Review of Systems Review of Systems: Pertinent positives per HPI. Patient denies any fever, chills, rash, headache, visual changes, dizziness, cough, runny nose, sore throat, shortness of breath, chest pain, palpitations, nausea, vomiting, diarrhea, constipation, abdominal pain, or any urinary issues. [facility] Past Medical History Medical History History of lipoma surgically removed 07/17/23 Anxiety Essential (primary) hypertension Type 2 diabetes mellitus without complications History of Papanicolaou smear of cervix (~10/19/08) History of mammogram (~11/26/12) Hepatitis C antibody test negative (~06/23/17) Surgical History Surgical History History of hysterectomy (~2003) History of colonoscopy (~11/22/16) Family History Family History Other Family history of gastrointestinal disorder Social History Social History Smoking status: Never smoker Second hand tobacco smoke exposure: No Alcohol intake: never Substance use: never Substance use type: does not use Do You Feel Safe in your Home?: Yes Lack of Transportation: No Lack of Food: Never True Current Housing: I Have Housing Concerned About Future Housing: No Difficulty Paying Gas/Electric Bills: No Difficulty Paying for Meds: No Currently Unemployed: No Education: Master's Degree or Higher Difficulty w/ Childcare or Family Care: No Living arrangements: alone Spiritual care concerns: No Comments At the time of my signature, I reviewed and agree with the nursing past medical, surgical, social, and family history. There is no relevant family history pertinent to the patient complaint. Exam Narrative: General: Well-developed, well nourished, in no apparent distress Head: Normocephalic, atraumatic. Cardio: Regular rate and rhythm, s1 and s2 normal, no murmur appreciated. Resp: Clear to auscultation bilaterally, no rhonchi, rales, wheezing or rubs. Musculoskeletal: No deformity, mild swelling to the right dorsal forearm when compared to the left forearm, tenderness to palpation over the mid forearm, no palpable mass, slight erythema without redness to the right forearm when compared to the left forearm, no open wounds or lesions, grossly normal range of motion, muscle strength strong and equal, peripheral pulse strong, no edema, no cyanosis, normal gait and station Course Course Emergency Course: Portions of this record may have been created with voice recognition software. Level of Care: Express Care Visit Vital Signs Vital signs: Vital Signs Temperature 35.9 C L 12/18/24 09:01 Pulse Rate 76 12/18/24 09:01 Respiratory Rate 18 12/18/24 09:01 Blood Pressure 147/90 H 12/18/24 09:01 Pulse Oximetry 96 12/18/24 09:01 Oxygen Delivery Room Air 12/18/24 09:01 Temperature 35.9 C L 12/18/24 09:01 Pulse Rate 76 12/18/24 09:01 Respiratory Rate 18 12/18/24 09:01 Blood Pressure 147/90 H 12/18/24 09:01 Pulse Oximetry 96 12/18/24 09:01 Oxygen Delivery Room Air 12/18/24 09:01 Vital signs reviewed MDM - Extremity Injury (Upper) MDM Narrative Medical decision making narrative: At the time of visit patient is resting comfortably on the exam table. Patient appears to be nontoxic. Complaints of right forearm pain and swelling x2 days. She has not taken anything for her symptoms. Denies any known injury to her right forearm. Has mild swelling when compared to the left forearm. Denies any chest pain or shortness of breath. Denies any insect bite/sting. Rates pain 4/10 currently. No history of lymphedema. On exam patient has right dorsal forearm pain and swelling. No obvious sign of wound her injury. Area is mildly erythemic and tender to palpation without redness. Distal and proximal pulses are strong and equal. Movement of the right wrist and elbow increase pain. Plan: I suspect patient has localized pain and swelling to the right forearm possibly due to muscle strain. Patient takes Celebrex daily stool cannot do any additional NSAIDs. Recommend Tylenol ice, Yoni wrap, and applying topical ointments such as Aspercreme, blue emu, or lidocaine to the area to help alleviate pain and swelling. Sensation, circulation, and motion was within normal limits after application of the Yoni wrap. Watch for signs and symptoms of DVT/cellulitis. This was reviewed with the patient. Supportive measures were discussed with the patient and they voiced understanding discharge instructions and agrees to treatment plan. Return precautions reviewed Differential Diagnosis Differential diagnosis: Likely other (Forearm pain and swelling, DVT of upper extremity,) Discharge Plan Discharge Clinical Impression: Pain and swelling of right forearm Patient Disposition: Home Condition: Stable Instructions: Antibiotic Form, Arm Pain (ED) Additional Instructions: No obvious sign of infection/cellulitis in the clinic today Rest, ice, elevate, and wear yoni wrap as directed Tylenol for pain as discussed. May apply Aspercreme, blue emu, or lidocaine to the affected area to help alleviate pain Follow up with your PCP if symptoms persist more than 1 week. If symptoms worsen recommend going to the emergency room-increased pain, increased swelling, redness, fever, purulent discharge, streaking, you develop shortness of breath or chest pain Patient Language: Grenadian Prescriptions: No Action famotidine 20 mg tablet 20 mg PO BID 30 Days Qty: 60 0RF omeprazole 40 mg capsule,delayed release(DR/EC) 40 mg PO DAILY 30 Days Qty: 30 0RF famotidine 20 mg tablet 20 mg PO BID 42 Days Qty: 84 0RF clobetasol 0.05 % solution See Rx Instructions .ROUTE .COMPLEX PRN (Reason: as needed) Dose Instruction: APPLY 1 APPLICATION TOPICALLY TWICE A DAY Rx Instructions: APPLY 1 APPLICATION TOPICALLY TWICE A DAY PRN; Jardiance 25 mg tablet 25 mg PO DAILY Skyrizi 150 mg/mL pen injector 150 mg subcut [id number] venlafaxine 150 mg capsule,extended release 24hr See Rx Instructions .ROUTE .COMPLEX Qty: 90 1RF Dose Instruction: TAKE 1 CAPSULE EVERY MORNING Rx Instructions: TAKE 1 CAPSULE EVERY MORNING amlodipine-valsartan 5-320 mg tablet See Rx Instructions .ROUTE .COMPLEX Qty: 90 1RF Dose Instruction: TAKE 1 TABLET DAILY Rx Instructions: TAKE 1 TABLET DAILY Ozempic 2 mg/dose (8 mg/3 mL) pen injector 2 mg subcut WEEKLY Qty: 9 5RF celecoxib 200 mg capsule See Rx Instructions .ROUTE .COMPLEX Qty: 90 1RF Dose Instruction: TAKE 1 CAPSULE DAILY Rx Instructions: TAKE 1 CAPSULE DAILY metoprolol succinate 50 mg tablet extended release 24 hr 75 mg PO DAILY Qty: 135 1RF pravastatin 10 mg tablet See Rx Instructions .ROUTE .COMPLEX Qty: 90 1RF Dose Instruction: TAKE 1 TABLET DAILY AT BEDTIME Rx Instructions: TAKE 1 TABLET DAILY AT BEDTIME metformin 1,000 mg tablet See Rx Instructions .ROUTE .COMPLEX Qty: 90 1RF Dose Instruction: Take 1 tablet by mouth twice daily Rx Instructions: Take 1 tablet by mouth daily levothyroxine 88 mcg tablet See Rx Instructions .ROUTE .COMPLEX Qty: 90 1RF Dose Instruction: Take 1 tablet by mouth once daily Rx Instructions: Take 1 tablet by mouth once daily Follow-up/Referrals: Charisse Aguilar DO [Primary Care Provider, Family Practice] Time of Disposition: 09:11 Quality NIHSS Nursing Documentation ED NIHSS nursing documentation: reviewed/agree
== END 2024-12-18 09:20 | disposition home or self-care (01) ==
PROVIDERS: Emergency Provider Nurse Practitioner Family; PCP Family Medicine
DX: M79.631 Pain in right forearm (principal); R22.31 Localized swelling, mass and lump, right upper limb; I10 Essential (primary) hypertension; E11.9 Type 2 diabetes mellitus without complications; Z79.84 Long term (current) use of oral hypoglycemic drugs; Z79.85 Long-term (current) use of injectable non-insulin antidiabetic drugs; F41.9 Anxiety disorder, unspecified
CPT/HCPCS: 99212; G0463